=== PATIENT | female | born 1945 | race Caucasian/White ===

== ENCOUNTER 2018-02-18 12:01 | Emergency (ER) | payer OTHER ==
[~2018-02-18] VITALS: Ht 149.9 cm; Wt 92.5 kg
[~2018-02-18 12:01] MED LIST: ACETAMINOPHEN325 M1 PO; ALLERGY MEDICAT25 MG PO; AMOXICILLIN 50500 MG PO; AMOXICILLIN875 MG PO; ATORVASTATIN CA20 MG PO; CALCIUM 500 +1 EAC5 PO; CALCIUM 600 +1 EAC1 PO; CARDIZEM CD120 MG PO; COLACE100 MG PO; DULCOLAX5 MG PO; ESSENTIAL DAIL1 EACH PO; FISH OIL 1,001000 M2 PO; HYDROCHLOROTHIA25 M2 PO; HYDROCHLOROTHIA50 MG PO; L-LYSINE600 MG PO; LASIX 40 MG TAB40 M2 PO; LIPITOR 20 MG T20 M1 PO; LISINOPRIL10 MG PO; LISINOPRIL5 MG PO; MAALOX MAXIMUM355 ML PO; MELATONIN3 MG PO; METAMUCIL1 EAC1 PO; METFORMIN HCL500 MG PO; MILK OF MA2400 MG/10 PO; NORCO 10-325 T1 EACH PO; NORCO 5-325 TA1 EACH PO; NOVOLOG100 UNIT/1 SUBQ; OXYBUTYNIN 5 MG5 M2 PO; PACERONE 200 M200 M1 PO; POTASSIUM20 PO; PREDNISONE10 MG PO; PROMETHAZINE12.5 M1 PO; ROCEPHIN 11 GM/1001 IVPB; SORINE 80 MG TA80 M1 PO; STOOL SOFT-STI1 EACH PO; TRAMADOL 50 MG50 MG PO; XARELTO20 MG PO; XOPENEX 0.63 MG/3 M1 INH; ZOCOR20 MG PO
[2018-02-18] MEDS ORDERED: LISINOPRIL2.5 MG PO (12:15)
[2018-02-18] MEDS ORDERED: ASPIRIN325 PO (12:16)
[2018-02-18 14:26] VITALS: BP 150/77
== END 2018-02-18 14:27 | disposition home or self-care (01) ==
LOC: M.ERS 12:01
DX: S01.512A Laceration without foreign body of oral cavity, initial encounter (principal); S05.11XA Contusion of eyeball and orbital tissues, right eye, initial encounter; E78.5 Hyperlipidemia, unspecified; I48.91 Unspecified atrial fibrillation; L40.9 Psoriasis, unspecified; E66.01 Morbid (severe) obesity due to excess calories; Z88.6 Allergy status to analgesic agent; Z91.041 Radiographic dye allergy status; Z88.8 Allergy status to other drugs, medicaments and biological substances; Z91.018 Allergy to other foods; Z68.41 Body mass index [BMI] 40.0-44.9, adult; Z90.49 Acquired absence of other specified parts of digestive tract; Z87.440 Personal history of urinary (tract) infections; Z87.442 Personal history of urinary calculi; W01.0XXA Fall on same level from slipping, tripping and stumbling without subsequent striking against object, initial encounter; Y93.89 Activity, other specified; Y92.89 Other specified places as the place of occurrence of the external cause; Y99.8 Other external cause status

== ENCOUNTER → 2018-04-05 | Outpatient (CLI) | payer OTHER ==
[~2018-04-05] MED LIST changes: +ASPIRIN325 PO; +LISINOPRIL2.5 MG PO
--- NOTE | 2018-04-05 11:30 | 2DMMODE ---
[place] [address] 2 D/M-MODE ECHOCARDIOGRAM Name: JUAQUIN MCKEON Room: [facility]#: [id number] Admission: 04/05/18 Attend Phys: Edd Johnson MD Discharge: Date of : 41 Date of Service: 04/05/18 1130 Report #: [id number] THIS REPORT FOR: //name// APPROVED REPORT Study performed: 04/05/2018 10:21:23 EXAM: Comprehensive 2D, Doppler, and color-flow Echocardiogram Patient Location: Out-Patient Status: routine BSA: 1.84 HR: 77 bpm BP: 109/42 mmHg Other Information Study Quality: Fair Indications Murmur Aortic Valve replacement 2D Dimensions IVSd: 10.83 (7-11mm) LVOT Diam: 19.20 (18-24mm) LVDd: 46.89 mm PWd: 10.31 (7-11mm) Ascending Ao: 30.80 (22-36mm) LVDs: 30.81 (25-40mm) Aortic Root: 22.17 mm Volumes Left Atrial Volume (Systole) LA ESV Index: 38.70 mL/m2 Aortic Valve AoV Peak Chi.: 2.85 m/s AO Peak Gr.: 32.58 mmHg LVOT Max P.15 mmHg AO Mean Gr.: 18.66 mmHg LVOT Mean P.45 mmHg LVOT Max V: 1.13 m/s AO V2 VTI: 63.27 cm LVOT Mean V: 0.72 m/s LUCILA (VTI): 1.26 cm2 LVOT V1 VTI: 27.59 cm Mitral Valve MV Peak Gr.: 10.41 mmHg MV Mean Gr.: 4.90 mmHg E/A Ratio: 0.75 MV Decel. Time: 275.57 [place] [address] 2 D/M-MODE ECHOCARDIOGRAM Name: JUAQUIN MCKEON Room: [facility]#: [id number] Admission: 04/05/18 Attend Phys: Edd Johnson MD Discharge: Date of : 41 Date of Service: 04/05/18 1130 Report #: [id number] MV E Max Chi.: 0.81 m/s MV PHT: 79.91 ms MVA (PHT): 2.75 cm2 TDI E/Lateral E': 9.00 E/Medial E': 10.13 Medial E' Chi.: 0.08 m/s Lateral E' Chi.: 0.09 m/s Pulmonary Valve PV Peak Chi.: 1.05 m/s PV Peak Gr.: 4.37 mmHg Tricuspid Valve RAP Estimate: 5.00 mmHg TR Peak Gr.: 27.88 mmHg RVSP: 32.88 mmHg PA Pressure: 32.88 mmHg Left Ventricle The left ventricle is normal size. There is normal left ventricular wall thickness. Left ventricular systolic function is borderline. LVEF is 50-55%. Grade I - abnormal relaxation pattern. Right Ventricle The right ventricle is normal size. The right ventricular systolic function is normal. Atria Left atrium is mildly dilated. The right atrium size is normal. Aortic Valve Bioprosthetic aortic valve is present. No aortic regurgitation is present. There is no aortic valvular stenosis. Mitral Valve There is mitral annular calcification. Mitral valve leaflets are mildly thickened. Mild mitral regurgitation. No evidence of mitral valve stenosis. Tricuspid Valve The tricuspid valve is normal in structure. Mild tricuspid regurgitation. estimated pa pressure 30 mm hg Pulmonic Valve The pulmonary valve is normal in structure. Mild [place]mon[place] [address] 2 D/M-MODE ECHOCARDIOGRAM Name: JUAQUIN MCKEON Room: [facility]#: [id number] Admission: 04/05/18 Attend Phys: Edd Johnson MD Discharge: Date of : 41 Date of Service: 04/05/18 1130 Report #: [id number] Great Vessels The aortic root is normal in size. IVC is normal in size and collapses with >50% inspiration Pericardium There is no pericardial effusion. <Conclusion> LVEF is 50-55%. Left atrium is mildly dilated. Bioprosthetic aortic valve is present. Mild mitral regurgitation. <ELECTRONICALLY SIGNED> By: Edd Johnson MD, [facility] 04/05/18 1130 29 29 Edd Johnson MD, FACC /INF
== END ==
LOC: M.CRD 10:00
DX: I08.1 Rheumatic disorders of both mitral and tricuspid valves (principal); Z95.2 Presence of prosthetic heart valve

== ENCOUNTER → 2019-04-11 | Outpatient (CLI) | payer OTHER ==
--- NOTE | 2019-04-11 12:49 | 2DMMODE ---
[place] [address] 2 D/M-MODE ECHOCARDIOGRAM Name: LINDAJUAQUIN M Room: [facility]#: [id number] Admission: 04/11/19 Attend Phys: Edd Johnson MD Discharge: Date of : 41 Date of Service: 04/11/19 1249 Report #: [id number] THIS REPORT FOR: //name// APPROVED REPORT Study performed: 04/11/2019 09:30:59 EXAM: Comprehensive 2D, Doppler, and color-flow Echocardiogram Patient Location: Out-Patient BSA: 1.91 HR: 78 bpm BP: 110/48 mmHg Other Information Study Quality: Fair Indications Aortic Valve Disease 2D Dimensions IVSd: 14.95 (7-11mm) LVOT Diam: 20.54 (18-24mm) LVDd: 45.73 mm PWd: 10.03 (7-11mm) Ascending Ao: 34.45 (22-36mm) LVDs: 33.46 (25-40mm) Aortic Root: 23.82 mm Volumes Left Atrial Volume (Systole) LA ESV Index: 32.60 mL/m2 Aortic Valve AoV Peak Chi.: 2.90 m/s AO Peak Gr.: 33.63 mmHg LVOT Max P.90 mmHg AO Mean Gr.: 19.47 mmHg LVOT Mean P.57 mmHg LVOT Max V: 1.21 m/s AO V2 VTI: 66.48 cm LVOT Mean V: 0.73 m/s LUCILA (VTI): 1.39 cm2 LVOT V1 VTI: 27.94 cm Mitral Valve MV Peak Gr.: 9.49 mmHg MV Mean Gr.: 4.78 mmHg E/A Ratio: 1.01 MV Decel. Time: 308.72 ms MV E Max Chi.: 1.19 m/s MV PHT: 89.53 [place] [address] 2 D/M-MODE ECHOCARDIOGRAM Name: LINDAJUAQUIN Room: [facility]#: [id number] Admission: 04/11/19 Attend Phys: Edd Johnson MD Discharge: Date of : 41 Date of Service: 04/11/19 1249 Report #: [id number] MVA (PHT): 2.46 cm2 TDI E/Lateral E': 11.90 E/Medial E': 17.00 Medial E' Chi.: 0.07 m/s Lateral E' Chi.: 0.10 m/s Pulmonary Valve PV Peak Chi.: 1.07 m/s PV Peak Gr.: 4.57 mmHg Tricuspid Valve RAP Estimate: 5.00 mmHg TR Peak Gr.: 22.72 mmHg RVSP: 27.72 mmHg PA Pressure: 27.72 mmHg Left Ventricle The left ventricle is normal size. There is normal LV segmental wall motion. There is normal left ventricular wall thickness. Left ventricular systolic function is normal. The left ventricular ejection fraction is within the normal range. LVEF is 50-55%. Grade I - abnormal relaxation pattern. Right Ventricle The right ventricle is normal size. The right ventricular systolic function is normal. Atria Left atrium is mildly dilated. The right atrium size is normal. Aortic Valve Bioprosthetic aortic valve is present. No aortic regurgitation is present. Mild aortic stenosis. Mitral Valve Mild mitral annular calcification. Mild mitral regurgitation. No evidence of mitral valve stenosis. Tricuspid Valve The tricuspid valve is normal in structure. Mild tricuspid regurgitation. estimated pa pressure 35 mm Hg Pulmonic Valve The pulmonary valve is normal in structure. There is no pulmonic [place] [address] 2 D/M-MODE ECHOCARDIOGRAM Name: JUAQUIN MCKEON Room: [facility]#: [id number] Admission: 04/11/19 Attend Phys: Edd Jhonson MD Discharge: Date of : 41 Date of Service: 04/11/19 1249 Report #: [id number] Great Vessels The aortic root is normal in size. IVC is normal in size and collapses >50% with inspiration. Pericardium There is no pericardial effusion. <Conclusion> LVEF is 50-55%. Left atrium is mildly dilated. Bioprosthetic aortic valve is present. Mild aortic stenosis. Mild mitral regurgitation. Mild tricuspid regurgitation. estimated pa pressure 35 mm Hg <ELECTRONICALLY SIGNED> By: Edd Johnson MD, FACC 04/11/19 1249 1249 1249 Edd Johnson MD, FACC /INF
== END ==
LOC: M.CRD 09:30
DX: I08.3 Combined rheumatic disorders of mitral, aortic and tricuspid valves (principal); Z95.3 Presence of xenogenic heart valve

== ENCOUNTER → 2019-09-02 | Outpatient (CLI) | payer MEDICARE | LOC: M.WC 09:56 | DX: I89.0 Lymphedema, not elsewhere classified (principal); I35.8 Other nonrheumatic aortic valve disorders; I10 Essential (primary) hypertension; E11.65 Type 2 diabetes mellitus with hyperglycemia; Z95.4 Presence of other heart-valve replacement; Z79.82 Long term (current) use of aspirin ==